=== PATIENT | male | born 1960 | race Caucasian/White ===

== ENCOUNTER 2017-02-16 14:49 | Emergency (ER) | payer MEDICAID, OTHER ==
[~2017-02-16] VITALS: Ht 185.4 cm; Wt 97.5 kg
[2017-02-16 15:04] VITALS: BP 137/92
[2017-02-16] MEDS ORDERED: NKM (15:05)
--- NOTE | 2017-02-16 15:16 | Emergency Room Report ---
History of Present Illness General Chief Complaint: Abdominal Pain Source: Patient Present Illness HPI 57-year-old male history of diabetes p/w abdominal pain for one month. Patient states pain started gradually, localized to left upper quadrant right below the rib, non radiating, sharp in nature, intermittent. No relieving or exacerbating factors. Severity is 5/10. Patient states that pain only lasts a few seconds and then goes away. It occurs once every other day or so. Patient denies any trauma. Denies any fever chills nausea vomiting diarrhea constipation. He has otherwise been eating and drinking normally Denies fever, chills. No hx of abdominal surgeries. No hx of endoscopies/colonoscopies. Patient currently denying any pain at this time Denies having shingles in the past Allergies: Coded Allergies: Cat Dander (Verified Allergy, Severe, Itching, 02/16/17) Patient History Past Medical History: see triage record Past Surgical History: none Pertinent Family History: none Reviewed Nursing Documentation: PMH: Agreed, PSxH: Agreed Nursing Documentation-PMH Past Medical History: No Stated History Review of Systems All Other Systems: negative except mentioned in HPI Physical Exam Vital Signs Date Time Temp Pulse Resp B/P (MAP) Pulse Ox O2 Delivery O2 Flow Rate FiO2 02/16/17 14:54 97.3 76 18 137/92 98 Room Air Sp02 EP Interpretation: reviewed, normal General Appearance: normal inspection, well appearing, no apparent distress, alert, GCS 15, non-toxic Head: normocephalic, atraumatic Eyes: bilateral eye normal inspection, bilateral eye PERRL, bilateral eye EOMI ENT: normal ENT inspection, normal pharynx, normal voice, moist mucus membranes Neck: normal inspection, full range of motion, supple Respiratory: normal inspection, lungs clear, normal breath sounds, no respiratory distress, no retraction, no wheezing, speaking full sentences, chest symmetrical Cardiovascular #1: normal inspection, regular rate, rhythm, no edema, normal capillary refill Cardiovascular #2: 2+ radial (R), 2+ radial (L) Gastrointestinal: normal inspection, non tender, soft, non-distended, no guarding, other - Nontender all quadrants abdomen, no guarding no rebound no distention Genitourinary: no CVA tenderness Musculoskeletal: normal inspection, back normal, normal range of motion, non- tender Neurologic: normal inspection, alert, oriented x3, responsive, motor strength/ tone normal, sensory intact, normal gait, speech normal Psychiatric: normal inspection, judgement/insight normal, memory normal Skin: normal inspection, normal color, no rash, warm/dry, well hydrated, normal turgor Medical Decision Making Diagnostic Impression: Primary Impression: Abdominal pain, chronic, left upper quadrant ER Course 57-year-old male with abdominal pain /left upper rib pain for one month Differential Diagnosis: At this time patient is experiencing no pain, differential diagnosis considered but very unlikely to to benign history and physical exam includes Gastritis, gastroenteritis, cholecystitis, appendicitis, diverticulitis, SBO, mesenteric ischemia, cardiac, UTI/pyelo At this time abdomen is soft nontender, not likely to have acute intra- abdominal surgical pathology Other possibilities could be neuropathic pain/post-herpetic neuralgia given the shooting pain symptoms Plan: None ER course: Patient has remained stable during ED stay. Not in acute distress, not in pain Disposition: Patient is to be discharged to home. Patient is instructed to follow up with their primary care doctor within 5 days. Strict return precautions discussed with patient such as fever, chills, worsening/severe abdominal pain, nausea, vomiting, black or bloody stools, which may indicate severe illness. Patient verbalizes understanding and agrees with plan. Please note that this Emergency Department Report was dictated using [employer] advisor technology software, occasionally this can lead to erroneous entry secondary to interpretation by the dictation equipment Last Vital Signs Date Time Temp Pulse Resp B/P (MAP) Pulse Ox O2 Delivery O2 Flow Rate FiO2 02/16/17 15:04 97.3 85 18 137/92 98 Room Air Disposition: HOME, SELF-CARE Condition: Stable Patient Instructions: Abdominal Pain, Adult Additional Instructions: PLEASE FOLLOW UP WITH YOUR PRIMARY CARE DOCTOR IN 1 WEEK Gilberto Ackerman M.D. Feb 16, 2017 15:16
[2017-02-16 15:26] VITALS: BP 137/92
== END 2017-02-16 15:40 | disposition home or self-care (01) ==
LOC: EMR 15:05
DX: R10.12 Left upper quadrant pain (principal); G89.29 Other chronic pain
CPT/HCPCS: 99282